=== PATIENT | female | born 1965 | race Caucasian/White ===

== ENCOUNTER → 2020-07-05 15:28 | Outpatient (CLI) | payer BC, SELFPAY ==
--- NOTE | ~2020-07-05 | XR_ITS ---
XR toe 5th RT min 2V DATE: 07/05/2020 16:11 INDICATION: Right toe pain TECHNIQUE: 4 views COMPARISON: None FINDINGS: There is a slightly displaced linear fracture through the shaft and neck of the proximal ph alanx, with up to 1 cortical width medial displacement. There is slight apex medial angulation. No other fracture or dislocation. IMPRESSION: Linear minimally displaced fracture of shaft and neck of proximal phalanx Reviewed, dictated and finalized at location A. IMPRESSION: Linear minimally displaced fracture of shaft and neck of proximal p halanx
== END ==
PROVIDERS: PCP Pediatrics; Visit Provider Pediatrics
DX: S92.511A Displaced fracture of proximal phalanx of right lesser toe(s), initial encounter for closed fracture (principal); M79.674 Pain in right toe(s)
CPT/HCPCS: 73660

== ENCOUNTER → 2022-12-06 15:09 | Outpatient (CLI) | payer OTHER, SELFPAY ==
--- NOTE | ~2022-12-06 | DEXA_ITS ---
Bone Density Report Name: STEVENSON WEINBERG Age: 57 Sex: Female Ethnicity: White Date of : 1965 Indication: postmenopausal; screening for osteoporosis; anorexia or bulimia; Referring Provider: TRACIE FLORES Study: Bone densitometry was performed. Exam Date: December 06, 2022 Accession number: [id number] Bone Density: Region BMD T-score Z-score Classification AP Spine (L1-L4) 0.719 -3.0 -1.7 Osteoporosis Femoral Neck (Left) 0.530 -2.9 -1.7 Osteoporosis Total Hip (Left) 0.583 -2.9 -2.1 Osteoporosis Femoral Neck (Right) 0.640 -1.9 -0.7 Osteopenia Total Hip (Right) 0.615 -2.7 -1.8 Osteoporosis Total Hip Mean 0.599 -2.8 -2.0 Osteoporosis World Health Organization criteria for BMD impression classify patients as: Normal (T-score at or above -1.0), Osteopenia (T-score between -1.0 and -2.5), or Osteoporosis (T-score at or below -2.5). 10-year Fracture Risk: FRAX not reported because: Some T-score for Spine Total or Hip Total or Femoral Neck at or below -2.5 Clinical Information Provided by Patient: Has the following medical conditions: Anorexia or Bulimia Patient maximum height was 66.5 Menopause Age: 47 Drinks caffeinated beverages Onset of menses at age 11 Number of children 5 Impression: The patient has osteoporosis, based on the Total Spine T-score. Discussion: INCREASED RISK OF FRACTURE. BONE DENSITY IS UNDESIRABLY LOW AT ONE OR MORE SKELETAL SITES, CONSISTENT WITH POSTMENOPAUSAL OSTEOPOROSIS. This patient's lowest T-score meets the World Health Organization's (WHO) criteria for osteoporosis at one or more sites (T-score -2.5 or below). In untreated patients, the risk of osteoporotic fracture increases approximately two-fold for each 1.0 SD decrease in T-score. Low bone density is not the only risk factor for fracture; also consider factors such as patient's age, frailty or poor health, risk of falling, risk of injury, previous osteoporotic fracture, family history of osteoporosis, cigarette smoking, low body weight, etc. Not everyone with low bone mineral density has osteoporosis; osteomalacia and other metabolic bone disorders should also be considered. Patients who have osteoporosis should be evaluated for specific diseases and conditions (secondary causes) that may cause or contribute to bone loss. The [place] [employer] (AACE) and National Osteoporosis Foundation (NOF) recommend pharmacologic intervention for all postmenopausal women whose T-score is in this range. The patient should follow a healthful lifestyle (good nutrition with adequate calcium and vitamin D, and appropriate weight-bearing exercise). Follow-Up: Consider a repeat BMD and Vertebral Fracture Assessment (VFA) exam in 2 years or sooner if medically necessary, to reassess this patient's status.
== END ==
PROVIDERS: PCP Pediatrics; Visit Provider Pediatrics
DX: Z78.0 Asymptomatic menopausal state (principal); M81.0 Age-related osteoporosis without current pathological fracture; M85.851 Other specified disorders of bone density and structure, right thigh
CPT/HCPCS: 77080

== ENCOUNTER → 2024-01-29 14:35 | Outpatient (REF) | payer BC, SELFPAY | LOC: ANHLAB 14:35 | PROVIDERS: PCP Pediatrics; Visit Provider Plastic Surgery | DX: C44.319 Basal cell carcinoma of skin of other parts of face (principal) | CPT/HCPCS: 88305 ==